=== PATIENT | female | born 1965 | race Caucasian/White ===

== ENCOUNTER → 2016-08-16 | Outpatient (CLI) | payer MEDICAID ==
[~2016-08-16] MED LIST: CYCL5TAB PO; DULO20CA45 PO; LORA-446 PO; NAPR500T3 PO
== END | disposition home or self-care (01) ==
LOC: CFH 14:55
PROVIDERS: ATTEND Nurse Practitioner
DX: Z12.31 Encounter for screening mammogram for malignant neoplasm of breast (principal)
CPT/HCPCS: G0202